=== PATIENT | male | born 1970 | race Caucasian/White ===

== ENCOUNTER 2016-10-10 18:05 | Emergency (ER) | payer BC ==
[2016-10-10 21:19] LABS: microscopic required? NO
[2016-10-10 21:25] LABS: UA SPECIFIC GRAVITY 1.025 (1.005-1.035); urine erythrocyte NEGATIVE (NEGATIVE)
[2016-10-10 21:25] LABS: BASOPHIL % 0.6 % (0-2); PLATELET COUNT 236 x10^3mcL (130-400); RED CELL DISTRIBUTION WIDTH 13.1 % (11.5-14.5)
[2016-10-10 21:37] LABS: CALCIUM 9.6 mg/dL (8.5-10.1); CARBON DIOXIDE 31.4 mmol/L (21-32); CHLORIDE SERUM 104 mmol/L (98-107); GFR1 > 60 mL/min; GLUCOSE SERUM 96 mg/dL (74-106); POTASSIUM SERUM 4.5 mmol/L (3.5-5.1); SODIUM SERUM 143 mmol/L (136-145)
[2016-10-10 21:54] LABS: ALBUMIN 4.1 g/dL (3.4-5.0); ALKALINE PHOSPHATASE 82 U/L (46-116); ALT/SGPT 40 U/L (16-63); AST/SGOT 26 U/L (15-37); BILIRUBIN TOTAL 0.5 mg/dL (0.20-1.00); LIPASE 222 IU/L (73-393); TOTAL PROTEIN, SERUM 7.9 g/dL (6.4-8.2)
[2016-10-10 23:32] VITALS: BP 136/81
== END 2016-10-10 23:32 | disposition home or self-care (01) ==
LOC: ED 18:05
PROVIDERS: Emergency Medicine
DX: K29.70 Gastritis, unspecified, without bleeding (principal); R03.0 Elevated blood-pressure reading, without diagnosis of hypertension; E78.5 Hyperlipidemia, unspecified
CPT/HCPCS: J1885